=== PATIENT | female | born 1930 | race Caucasian/White ===

== ENCOUNTER 2017-03-12 20:12 | Inpatient (IN) | payer MEDICARE ==
--- NOTE | 2017-03-12 21:12 | RAD ---
PORTABLE CHEST ONE VIEW 03/12/17 at 8:53 p.m. HISTORY: Shortness of breath, sepsis. FINDINGS: Comparison made with exam of 08/20/13. The heart size is normal. There are patchy areas of consolidation in the right upper and left lower l kasi zones. No pneumothoraces or large effusions are seen. IMPRESSION: Pneumonia. POS: [facility]
[2017-03-12 21:40] LABS: Hemoglobin 9.9 g/dL (12.0-16.0); Mean Corpuscular Hemoglobin 31.2 pg (27.0-31.0); Mean Corpuscular Volume 94.3 fl (81.0-99.0); Mean Platelet Volume 7.5 fL (7.4-10.4); Platelet Count 485 thou/uL (130-400); RBC Distribution Width 13.9 % (11.5-14.5); Red Blood Cell (RBC) Count 3.18 mill/uL (4.20-5.40)
[2017-03-12 21:44] LABS: ALT (SGPT) 19 U/L (8-55); AST (SGOT) 15 U/L (5-34); Albumin 2.9 g/dL (3.4-4.8); Alkaline Phosphatase 218 U/L (40-150); Anion Gap 21 mmol/L (10-20); BUN (Urea Nitrogen) 19 mg/dL (9.8-20.1); Bilirubin, Total 2.5 mg/dL (0.2-1.2); Calc. Creatinine Clearance 0 mL/min (70-130); Calcium 8.8 mg/dL (7.8-10.44); Carbon Dioxide 18 mmol/L (23-31); Chloride 96 mmol/L (98-107); Estimated GFR-MDRD 42; Globulin 3.6 g/dL (2.4-3.5); Glucose 139 mg/dL (83-110); Lipase Less than 4 U/L (8-78); Magnesium 1.7 mg/dL (1.6-2.6); Protein, Total 6.5 g/dL (6.0-8.3); Sodium 132 mmol/L (136-145)
[2017-03-12 21:45] LABS: Band 33 % (5-11); Dohle Bodies SLIGHT; Lymphocytes 1 % (21-51); MDiff Complete? YES; Metamyelocyte 2 % (0-0); Monocytes 5 % (0-10); Neutrophil 59 % (42-75); PLT Morphology Comment Appears Increased; Reflex for Review?? YES; Toxic Granulation SLIGHT
[2017-03-12 21:46] LABS: Potassium 2.9 mmol/L (3.5-5.1)
[2017-03-12 21:52] LABS: CKMB 3.3 ng/mL (0-6.6); Troponin I Less than 0.010 ng/mL (< 0.028)
[2017-03-12] MEDS ORDERED: Piperacillin-Tazo-Dextrose,Iso 3.375 GM in Premix Bag 1 BAG IVPB SCH (22:45)
[2017-03-12] MEDS ORDERED: Oseltamivir 75 MG CAP PO SCH (22:45)
[2017-03-12] MEDS ORDERED: Albuterol Sulfate 2.5 mg/3 ml Neb ONE (23:05)
[2017-03-12 23:18] LABS: Actual Bicarbonate (HCO3a) 17.6 mEq/L (22-26); Base Excess (BEa) -4.4 mEq/L (0 (+/-) 2.5); CO2 Tension 23.1 mmHg (35.0-45.0); Hematocrit-ABG 33.6 % (36.0-47.0); O2 Tension (PaO2) 69.6 mmHg (80.0-100.0)
[2017-03-12 23:19] LABS: ALV-art Gradient 184.725 (0-20); Analyzer IN Cardio ER; Puncture Site LRA
[2017-03-12] MEDS ORDERED: Lorazepam 2 MG/ML VIAL ONE (23:23)
[2017-03-13] MEDS ORDERED: Mag-Al 1200 mg/1200 mg/30 ML UDCUP PO PRN (01:14)
[2017-03-13] MEDS ORDERED: Loratadine 10 MG TAB PO PRN (01:14)
[2017-03-13] MEDS ORDERED: Diabetic Tussin 200 MG/10 ML UDCUP PO PRN (01:14)
[2017-03-13] MEDS ORDERED: Benzonatate 100 MG CAP PO PRN (01:14)
[2017-03-13] MEDS ORDERED: Bisacodyl 5 MG TAB PO PRN (01:14)
[2017-03-13] MEDS ORDERED: hydrALAZINE 20 MG/ML VIAL SLOW IVP PRN (01:14)
[2017-03-13] MEDS ORDERED: Famotidine/PF 20 mg/2ml Vial SLOW IVP PRN (01:14)
[2017-03-13] MEDS ORDERED: Nitroglycerin 0.4 MG TAB (25 Tab Bottle) SL PRN (01:14)
[2017-03-13] MEDS ORDERED: Senokot 8.6 MG TAB PO PRN (01:14)
[2017-03-13] MEDS ORDERED: CCU Electrolyte Replacement 1 EACH FS SCH (01:14)
[2017-03-13] MEDS ORDERED: cloNIDine 0.1 MG TAB PO PRN (01:14)
[2017-03-13] MEDS ORDERED: Norepinephrine 8 MG in Sodium Chloride 0.9% 250 ML 242 ML IVPB PRN (01:14)
[2017-03-13] MEDS ORDERED: Ondansetron HCl/PF 4 MG/2 ML Vial IVP PRN (01:14)
[2017-03-13] MEDS ORDERED: Calcium Carbonate 500 MG ChewTAB PO PRN (01:14)
[2017-03-13] MEDS ORDERED: Sodium Chloride 0.9% 1,000 ML IV SCH (01:15)
[2017-03-13] MEDS ORDERED: Potassium Chloride 40 MEQ in Sodium Chloride 0.9% 250 ML 250 ML IVPB PRN (01:25)
[2017-03-13] MEDS ORDERED: Potassium Chloride 20 MEQ TAB PO PRN (01:25)
[2017-03-13] MEDS ORDERED: Magnesium 2 GM/NS 0.9% 100 ML 2 GM in Premix Bag 1 BAG IVPB PRN (01:25)
[2017-03-13] MEDS ORDERED: Potassium Phosphate 12 MMOL in Sodium Chloride 0.9% 250 ML 250 ML IV PRN (01:25)
[2017-03-13] MEDS ORDERED: Potassium Phosphate 9 MMOL in Sodium Chloride 0.9% 100 ML IVPB PRN (01:25)
[2017-03-13] MEDS ORDERED: Potassium Chloride 40 MEQ in Premix Bag 1 BAG IVPB PRN (01:25)
[2017-03-13] MEDS ORDERED: CCU ELECTROLYTE REPLACEMENT PROTOCOL FS PRN (01:25)
[2017-03-13] MEDS ORDERED: Potassium Phosphate 15 MMOL in Sodium Chloride 0.9% 250 ML 250 ML IV PRN (01:25)
[2017-03-13] MEDS ORDERED: Magnesium Oxide 400 MG TAB PO PRN ×2 (01:25)
[2017-03-13] MEDS ORDERED: VANCOMYCIN IVPB PRN (01:44)
[2017-03-13] MEDS ORDERED: Ketoconazole 2% Cream 15 gm Tube TOP PRN (03:39)
[2017-03-13 05:17] VITALS: BMI 24.1
[2017-03-13 05:21] LABS: ALT (SGPT) 19 U/L (8-55); AST (SGOT) 22 U/L (5-34); Albumin 2.8 g/dL (3.4-4.8); Alkaline Phosphatase 216 U/L (40-150); Anion Gap 21 mmol/L (10-20); BUN (Urea Nitrogen) 18 mg/dL (9.8-20.1); Bilirubin, Total 2.6 mg/dL (0.2-1.2); Calc. Creatinine Clearance 39 mL/min (70-130); Calcium 8.6 mg/dL (7.8-10.44); Carbon Dioxide 15 mmol/L (23-31); Chloride 99 mmol/L (98-107); Estimated GFR-MDRD 49; Globulin 3.7 g/dL (2.4-3.5); Glucose 156 mg/dL (83-110); Potassium 3.1 mmol/L (3.5-5.1); Protein, Total 6.5 g/dL (6.0-8.3); Sodium 132 mmol/L (136-145)
[2017-03-13 05:57] LABS: Band 52 % (5-11); Dohle Bodies SLIGHT; Hemoglobin 11.4 g/dL (12.0-16.0); Lymphocytes 4 % (21-51); MDiff Complete? YES; Mean Corpuscular HGB CONC 31.9 g/dL (32.0-36.0); Mean Corpuscular Hemoglobin 30.4 pg (27.0-31.0); Mean Corpuscular Volume 95.5 fl (81.0-99.0); Mean Platelet Volume 6.7 fL (7.4-10.4); Metamyelocyte 4 % (0-0); Monocytes 4 % (0-10); Myelocyte 1 % (0-0); Neutrophil 35 % (42-75); PLT Morphology Comment Appears Increased; Platelet Count 474 thou/uL (130-400); RBC Distribution Width 14.3 % (11.5-14.5); Red Blood Cell (RBC) Count 3.76 mill/uL (4.20-5.40); Toxic Granulation SLIGHT; White Blood Cell (WBC) Count 47.8 thou/uL (4.8-10.8)
[2017-03-13] MEDS: Piperacillin/Tazobactam 4.5 GM in Sodium Chloride 0.9% 100 ML IVPB SCH ×3 (06:00→17:31)
[2017-03-13] MEDS: Levothyroxine Sodium 112 MCG TAB PO SCH (06:00)
--- NOTE | 2017-03-13 06:11 | HP ---
DATE OF ADMISSION: 03/12/2017 CHIEF COMPLAINT: Shortness of breath, cough. HISTORY OF PRESENT ILLNESS: Ms. Siddiqui is a very pleasant 86-year-old female with history of inguin al hernia, hypertension, hypothyroidism, lung carcinoid tumor who presented to the [facility] with the above-mentioned complaints. History is mainly obtained by the record review. The p atient is able to provide some of the history, but not ideal because of excessive cough and because s he is getting easily winded. According to Ms. Siddiqui, she lives in an assisted living facility where everybody is sick. She star shayy to have some cough for the last 2 weeks, but then she shortly developed shortness of breath 2 day s ago. It has progressively been getting worse. She denies any fevers. She denies any other sympto ms. No chest pain, orthopnea, or PND. She has no nausea, vomiting, diarrhea, or abdominal pain. Sh e denies any dysuria, frequency, or urgency. Upon presentation to [facility], she was found to have hypoxia with oxygen saturation o f 91% on room air and tachycardia with a heart rate of 107. Her blood pressure was 116/57. Further examination revealed WBC elevated to 42.28 with 80% neutrophils and 9% bands. She was also found to have lactic acid elevated at 3.3 and BNP of 219. On examination, she was found to have respiratory d istress with crackles and wheezes. She was transferred to our facility with a presumptive diagnosis of respiratory distress due to sepsis and pneumonia. Upon presentation to [facility], she was 93% on 4 liters oxygen, treated because of se holley respiratory distress. She was started on BiPAP and is now being admitted to [facility] respirator for acute respiratory failure due to pneumonia as well as sepsis. The patient otherwise has DNR/DNI ord er in the chart and I also personally confirmed this at this time. She continues to be DNR/DNI, but she would allow use of pressors and CPAP and BiPAP if necessary. PAST MEDICAL HISTORY: 1. Hypertension. 2. Hypothyroidism. 3. History of inguinal hernia. 4. Osteoporosis. 5. Macular degeneration. 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 7. Sciatica. PAST SURGICAL HISTORY: Appendectomy. PSYCHIATRIC HISTORY: Anxiety. SOCIAL HISTORY: She lives in [facility] assisted living facility. Former smoker, but quit smoking mo re than 10 years ago. No history of alcohol or drug abuse. FAMILY HISTORY: No significant family history of coronary artery disease or stroke. ALLERGIES: FLUCONAZOLE and SULFACETAMIDE. CURRENT MEDICATIONS: Clonidine 0.2 mg daily, losartan/hydrochlorothiazide 100 mg/ 25 mg 1 tablet nicolette ly, metoprolol tartrate 25 mg daily, Norvasc 5 mg daily, Lasix 50 mg daily, levothyroxine 112 mcg da parvin, nortriptyline 10 mg 2 tablets at bedtime, omeprazole 20 mg daily, potassium chloride 20 mEq florin y, Zantac 150 mg daily, temazepam 7.5 mg at bedtime. REVIEW OF SYSTEMS: The following complete review of systems was negative, except for those mentioned in the history and physical: Constitutional: Weight loss or gain, ability to conduct usual activities. Skin: Rash, itching. Eyes: Double vision, pain. ENT/Mouth: Nose bleeding, neck stiffness, pain, tenderness. Cardiovascular: Palpitations, dyspnea on exertion, orthopnea. Respiratory: Shortness of breath, wheezing, cough, hemoptysis, fever, or night sweats. Gastrointestinal: Poor appetite, abdominal pain, heartburn, nausea, vomiting, constipation, or diarr hea. Genitourinary: Urgency, frequency, dysuria, nocturia. Musculoskeletal: Pain, swelling. Neurologic/Psychiatric: Anxiety, depression. Allergy/Immunologic: Skin rash, bleeding tendency. The patient reports that her breathing is a trina le bit better. LABORATORY DATA: Labs done at [facility] include WBCs 46,000 with 33% bands and 59% n eutrophils, hemoglobin 9.9, platelet count of 485. D-dimer is 1.36. ABG shows pH of 7.50, pCO2 of 2 3, pO2 of 69. Serum chemistry show sodium of 132, potassium 2.9, chloride 96, bicarbonate 18, anion gap of 21, BUN 19, creatinine 1.20, estimated GFR of 42. Lactic acid 5.4 with repeat lactic acid of 6.0. Total bilirubin 2.5. BNP of 218. Cardiac enzymes unremarkable. Lipase is normal. Chest x-ray by review shows bilateral infiltrates consistent with pneumonia. EKG by my review shows normal sinus rhythm with sinus tachycardia at 118 beats per minute. PHYSICAL EXAMINATION: VITAL SIGNS: Most recent vital signs include pulse of 119, respirations 24, saturating 94% on 4 lite rs oxygen, blood pressure 106/53. Please note that the patient has taken off the BiPAP and could not tolerate it. GENERAL: She is awake, alert, oriented x3. She has significant scoliosis and is bent over when lyin g in bed, otherwise mild respiratory distress, especially with conversation. She is coughing HEENT: Mucous membranes slightly dry. No oropharyngeal exudate or erythema. Head is normocephalic, atraumatic. Pupils are equal, reactive to light and accommodation. Extraocular movements intact. NECK: Supple without any lymphadenopathy, JVD, or bruit. CHEST: Shows bibasilar crackles with very few scattered wheezes. Coarse breath sounds heard bilater ally. CARDIOVASCULAR: She is tachycardic with regular rhythm. No significant murmur appreciated. ABDOMEN: Soft, nontender, nondistended. Right inguinal hernia palpable. EXTREMITIES: Free of any cyanosis, clubbing, or edema. NEUROLOGIC: Nonfocal. SKIN: Free of any rashes or bruises. Feels warm and dry to touch. PSYCHIATRIC: Mild anxiety noticed. CODE STATUS: DO NOT RESUSCITATE AND INTUBATE. I personally discussed this with the patient and conf irmed it. IMPRESSION AND PLAN: 1. Acute respiratory failure. This is likely secondary to ongoing pneumonia. The patient does have elevated D-dimer, though the likelihood of pulmonary embolism is low, given the fact that she is pedro patrick septic. We will, however, go ahead and obtain a nuclear medicine ventilation perfusion scan. I t likely will be of limited value given her extensive scoliosis as well as pneumonia. If her renal f unction permits, a CT angio would be the ideal test, but her GFR is only 42 at this time. We will av oid any nephrotoxic medications or dyes. Patient has BiPAP orders, but otherwise she is a DNR/DNI. She does not want to keep the BiPAP on and will be continued on nasal cannula for now. DuoNebs will be ordered, scheduled as well as p.r.n. along with other symptomatic and supportive care. We will co nsult Pulmonary medicine for further evaluation and she would be admitted to [facility] for now. The patie nt does have history of congestive heart failure, but no baseline. Echocardiogram is available on he r. We will go ahead and check echocardiogram to rule out valvular abnormalities and systolic versus diastolic failure. We will be cautious with IV fluid hydration. 2. Sepsis secondary to pneumonia. Broad-spectrum IV antibiotics will be used, namely vancomycin, le vofloxacin as well as Zosyn. The patient has received Tamiflu empirically in the emergency room and we will continue that for now as most of her residents at the [facility] were sick. Gentle IV f luid hydration will be continued, but we will be cautious for fluid overload given her history of con gestive heart failure. 3. Hypokalemia. We will replace and recheck. Her magnesium level is within normal limits. Anion g ap metabolic acidosis. This is once again secondary to severe sepsis and lactic acidosis. We will c ontinue IV fluids and recheck in the morning. 4. Pneumonia. She will be treated as healthcare-associated pneumonia, because she resides in the [facility] with broad-spectrum empiric intravenous antibiotics and supportive care. 5. Sinus tachycardia. The patient will be restarted on her beta violet once blood pressure improve s. Currently, her blood pressure is stable and 106/53 as well as 96/47 range. She has been adequate ly fluid resuscitated in our emergency room with multiple liters of IV fluids. 6. Lactic acidosis secondary to sepsis. 7. Leukocytosis secondary to sepsis. 8. History of hypertension. We will hold her antihypertensives and restart as blood pressure permit s. 9. History of congestive heart failure, obtain 2D echocardiogram and hold her Lasix for now given lo w-marginal blood pressures. 10. Deep venous thrombosis and gastrointestinal prophylaxis. 11. Hypothyroidism. Restart her levothyroxine. DISPOSITION: Ms. Siddiqui is critically ill with severe sepsis as well as acute respiratory failure. She will be admitted to [facility]. Estimated length of stay is at least 2-3 midnight. Total time spent in the care of this patient is 38 minutes.
[2017-03-13 06:41] LABS: Bilirubin Negative (Negative); Blood, Urine Negative (Negative); Clarity CLEAR (Clear); Glucose, Urine (Dipstick) Negative (Negative); Leukocyte Small (Negative); Nitrite Negative (Negative); Protein, Urine (Dipstick) Negative (Neg-Trace); Specific Gravity, Urine 1.016 (1.002-1.036); pH, Urine 5.5 (5.0-9.0)
[2017-03-13 06:44] LABS: Bacteria/HPF 2+ HPF (None Seen); Hyaline Casts/LPF 4-6 HYALINE CAST LPF (0-3 Hyaline); RBC/HPF 0-3 HPF (0-3); Squamous Epithelial 0-3 HPF (0-3); WBC/HPF 0-3 HPF (0-3)
[2017-03-13] MEDS: Oseltamivir 75 MG CAP PO SCH ×2 (08:19→20:11)
[2017-03-13] MEDS: Megestrol Acetate 40 MG TAB PO SCH ×2 (08:19→20:11)
[2017-03-13] MEDS: guaiFENesin ER 600 MG TAB PO SCH ×2 (08:20→20:11)
[2017-03-13] MEDS ORDERED: Vancomycin HCl 1 GM in Sodium Chloride 0.9% 250 ML 250 ML IVPB SCH (09:00)
[2017-03-13 10:11] LABS: Magnesium 1.9 mg/dL (1.6-2.6); Potassium 3.2 mmol/L (3.5-5.1)
--- NOTE | 2017-03-13 10:11 | PDOC.PN ---
- Subjective Encounter Start Date: 03/13/17 Encounter Start Time: 10:09 Ms. Siddiqui was seen in follow-up of acute respiratory distress due to pneumonia. She says she is breathing a little better. She still feels short of breath. - Objective Resuscitation Status: Resuscitation Status DNR:Do Not Resuscitate MAR Reviewed: Yes Vital Signs & Weight: Vital Signs (12 hours) Temp Pulse Resp BP Pulse Ox 03/13/17 08:39 94 L 03/13/17 08:36 116 H 36 H 94 L 03/13/17 08:00 98.9 F 118 H 20 117/63 94 L 03/13/17 07:00 98.9 F 117 H 18 96/70 94 L 03/13/17 06:02 124 H 24 H 146/76 H 93 L 03/13/17 05:20 120 H 24 H 127/68 93 L 03/13/17 04:01 98.0 F 121 H 24 H 102/56 L 92 L 03/13/17 03:05 119 H 24 H 106/53 L 94 L 03/13/17 02:26 120 H 28 H 93 L 03/13/17 02:22 118 H 24 H 96/47 L 96 03/13/17 01:34 122 H 24 H 119/56 L 94 L 03/13/17 00:39 97.8 F 124 H 24 H 150/76 H 94 L Weight Weight 144 lb 8 oz I&O: 03/12/17 03/13/17 03/14/17 06:59 06:59 06:59 Intake Total 1080 Output Total 750 60 Balance 330 -60 Result Diagrams: 03/13/17 03:57 03/13/17 03:57 Phys Exam - Physical Examination HEENT: PERRLA Respiratory: wheezing present + rales bilaterally, no rhonchi Cardiovascular: RRR, no significant murmur, no rub Gastrointestinal: soft, non-tender, positive bowel sounds Musculoskeletal: no edema Dx/Plan (1) Acute and chronic respiratory failure Code(s): J96.20 - ACUTE AND CHR RESP FAILURE, UNSP W HYPOXIA OR HYPERCAPNIA Status: Acute (2) Pneumonia Code(s): J18.9 - PNEUMONIA, UNSPECIFIED ORGANISM Status: Acute (3) Sepsis Code(s): A41.9 - SEPSIS, UNSPECIFIED ORGANISM Status: Acute (4) Hypertension Code(s): I10 - ESSENTIAL (PRIMARY) HYPERTENSION Status: Acute (5) Hypothyroidism Code(s): E03.9 - HYPOTHYROIDISM, UNSPECIFIED Status: Acute - Plan * Acute respiratory failure due to Pneumonia with sepsis- Continue Levaquin and Zosyn * Aggressive Pulmonary Toilet * Duonebs and supplemental oxygen * HTN- blood pressure is stable * Awaiting Pulmonary evaluation * Patient with severe Kyphosis, and advanced age, and Leukocytosis- her condition is guarded.
[2017-03-13] MEDS: traMADol HCl 50 MG TAB PO PRN ×2 (11:51→20:12)
--- NOTE | 2017-03-13 17:39 | ULT ---
BILATERAL LOWER EXTREMITY VENOUS DOPPLER ULTRASOUND: Date: 03/13/17 HISTORY: Shortness of breath. Pain in the left lower extremity. TECHNIQUE: Johnson scale ultrasound with color flow and spectral Doppler imaging of the deep venous systems of the lower extremities was performed bilaterally. FINDINGS: There is good flow, compression, and augmentation noted in the common femoral, femoral, deep femoral, popliteal, posterior tibial, and greater saphenous veins on either side. IMPRESSION: No evidence of deep venous thrombosis in either lower extremity. POS: [facility]
[2017-03-13] MEDS: Vancomycin HCl 750 MG in Sodium Chloride 0.9% 250 ML 250 ML IVPB SCH (20:13)
--- NOTE | 2017-03-13 20:35 | CON ---
DATE OF CONSULTATION: 03/13/2017 CONSULTING PHYSICIAN: Irene Harvey MD REASON FOR CONSULTATION: Shortness of breath. HISTORY OF PRESENT ILLNESS: This is an 86-year-old female, who was hospitalized yesterday with appar ent increasing shortness of breath and cough. Apparently, she has some shortness of breath at [facility]. She has difficulty swallowing and has to have her assist in feeding her. She lives in a assisted living facility with her . She was found to be more hypoxic yesterday and was tach ycardic. She has been hospitalized with an empiric diagnosis of acute respiratory failure related to sepsis and pneumonia. PAST MEDICAL HISTORY: 1. Severe osteoporosis. 2. Severe kyphosis. 3. Hypertension. 4. Hypothyroidism. 5. Inguinal hernia. 6. Macular degeneration. 7. Carcinoid tumor of the right lung. 8. Sciatica. PAST SURGICAL HISTORY: Appendectomy. SOCIAL HISTORY: Former smoker, quit more than 10 years. Does not consume alcohol. Lives in [facility] in assisted living facility with her . FAMILY MEDICAL HISTORY: Unremarkable. ALLERGIES: FLUCONAZOLE and SULFACETAMIDE. MEDICATIONS: Clonidine, losartan/hydrochlorothiazide, metoprolol, Norvasc, Lasix, levothyroxine, nor triptyline, omeprazole, potassium, Zantac, temazepam. REVIEW OF SYSTEMS: Remarkable for cough, difficulty swallowing. Otherwise, is negative. PHYSICAL EXAMINATION: VITAL SIGNS: Temperature 97.6, pulse 65, respiratory rate 20, O2 sat 97%, blood pressure 123/67. GENERAL: She is severely kyphotic. She cannot raise her neck above the level of her sternal notch. HEENT: Otherwise, unremarkable. NECK: No JVD. LUNGS: Fairly clear without wheezing, but tachypneic at baseline. CARDIOVASCULAR: S1, S2, slightly tachycardic. ABDOMEN: Soft, nontender. EXTREMITIES: No edema. LABORATORY AND X-RAY FINDINGS: White blood cell count is 47.8, hematocrit 35.9, platelet count 474. INR 1.0, PTT 28. Chemistry: Sodium 132, potassium 3.7, chloride 96, CO2 19, BUN 15, creatinine 1.0 . Lactate of 6.0. Blood gas pH of 7.50, pCO2 of 23, PO2 of 69. Chest x-ray demonstrates a right up per lobe and left lower lobe infiltrate. Overall, she has got severe chronic changes bilaterally. ASSESSMENT: 1. Pneumonia -- probably chronic aspiration pneumonia. 2. Severe kyphoscoliosis. 3. History of hypertension. 4. Possible flu with pending flu studies. RECOMMENDATIONS: 1. Continue the antibiotic system or neither speech evaluation. 2. Would discontinue the VQ scan as she is not able to lie down and do the test. 3. Check lower extremity Dopplers.
[2017-03-14] MEDS: Piperacillin/Tazobactam 4.5 GM in Sodium Chloride 0.9% 100 ML IVPB SCH ×4 (00:34→18:29)
[2017-03-14] MEDS: traMADol HCl 50 MG TAB PO PRN (03:22)
[2017-03-14] MEDS: Levothyroxine Sodium 112 MCG TAB PO SCH (05:38)
[2017-03-14 06:16] LABS: Hemoglobin 11.4 g/dL (12.0-16.0); Mean Corpuscular HGB CONC 31.4 g/dL (32.0-36.0); Mean Corpuscular Hemoglobin 29.6 pg (27.0-31.0); Mean Corpuscular Volume 94.5 fl (81.0-99.0); Mean Platelet Volume 7.1 fL (7.4-10.4); Platelet Count 407 thou/uL (130-400); RBC Distribution Width 14.4 % (11.5-14.5); Red Blood Cell (RBC) Count 3.86 mill/uL (4.20-5.40); White Blood Cell (WBC) Count 57.4 thou/uL (4.8-10.8)
[2017-03-14 06:18] LABS: Anion Gap 14 mmol/L (10-20); BUN (Urea Nitrogen) 19 mg/dL (9.8-20.1); Calc. Creatinine Clearance 48 mL/min (70-130); Calcium 9.3 mg/dL (7.8-10.44); Carbon Dioxide 22 mmol/L (23-31); Chloride 104 mmol/L (98-107); Estimated GFR-MDRD 63; Glucose 164 mg/dL (83-110); Potassium 3.2 mmol/L (3.5-5.1); Sodium 137 mmol/L (136-145)
[2017-03-14 06:39] LABS: Band 43 % (5-11); Lymphocytes 3 % (21-51); MDiff Complete? YES; Monocytes 1 % (0-10); Neutrophil 53 % (42-75); PLT Morphology Comment Appears Increased
[2017-03-14] MEDS: Megestrol Acetate 40 MG TAB PO SCH ×2 (08:39→21:31)
[2017-03-14] MEDS: guaiFENesin ER 600 MG TAB PO SCH ×2 (08:39→21:31)
[2017-03-14] MEDS: Oseltamivir 75 MG CAP PO SCH (08:39)
--- NOTE | 2017-03-14 10:09 | PRG ---
DATE OF SERVICE: 03/14/2017 SUBJECTIVE: She is continuing to have difficulty with aspiration while eating. She has made a decis ion to forego any type of feeding tube placement understanding the risks involved. PHYSICAL EXAMINATION: VITAL SIGNS: Today, her temperature is 97.3, pulse 115, respirations 18, O2 sat 93%, blood pressure 127/67. HEENT: Remarkable for the kyphotic neck posture. LUNGS: Coarse breath sounds. CARDIAC: S1 and S2 regular. ABDOMEN: Soft. EXTREMITIES: No edema. LABORATORY DATA: White blood cell count 57.4, hematocrit 36.5, platelet count 407. Sodium 137, pota ssium 3.2, chloride 104, CO2 22, BUN 19, creatinine 0.8, glucose 164. ASSESSMENT: 1. Bilateral pneumonia, likely aspiration related. 2. Advanced age. RECOMMENDATIONS: I would continue antibiotics, but I am very concerned that this condition is not go ing to improve because of the patient's dysfunctional swallowing. She has made it clear that she el s not want any aggressive interventions. Based on this, I would favor getting the palliative care te am involved. The patient is DNR. She is not benefiting for intermediate care. Therefore, she can b e transferred out to the medical floor. I discussed with her on the phone. Her prognosis is very poor.
--- NOTE | 2017-03-14 11:00 | PDOC.PN ---
- Subjective Encounter Start Date: 03/14/17 Encounter Start Time: 07:30 Subjective: awake, oriented well -: no sob, still coughing - Objective Resuscitation Status: Resuscitation Status DNR:Do Not Resuscitate MAR Reviewed: Yes Vital Signs & Weight: Vital Signs (12 hours) Temp Pulse Resp BP Pulse Ox 03/14/17 08:00 97.3 F L 115 H 18 93 L 03/14/17 07:00 97.3 F L 115 H 18 127/67 93 L 03/14/17 06:52 90 L 03/14/17 06:51 116 H 28 H 03/14/17 04:32 96 03/14/17 04:07 97.6 F 114 H 24 H 144/61 H 92 L 03/14/17 00:45 115 H 26 H 93 L 03/14/17 00:39 98.4 F 117 H 20 130/54 L 94 L Weight Weight 147 lb I&O: 03/13/17 03/14/17 03/15/17 06:59 06:59 06:59 Intake Total 1080 850 Output Total 750 1410 Balance 330 -560 Result Diagrams: 03/14/17 05:35 03/14/17 05:35 Phys Exam - Physical Examination HEENT: PERRLA, moist MMs Neck: no JVD, supple Respiratory: no wheezing, no rales rhonchi++ Cardiovascular: RRR, no significant murmur Gastrointestinal: soft, non-tender, positive bowel sounds Musculoskeletal: no edema, pulses present Neurological: non-focal, moves all 4 limbs Psychiatric: A&O x 3 Dx/Plan (1) Pneumonia Code(s): J18.9 - PNEUMONIA, UNSPECIFIED ORGANISM Status: Acute Qualifiers: Pneumonia type: aspiration pneumonia Laterality: bilateral (2) FTT (failure to thrive) in adult Status: Chronic (3) Hypertension Code(s): I10 - ESSENTIAL (PRIMARY) HYPERTENSION Status: Chronic Qualifiers: Hypertension type: essential hypertension Qualified Code(s): I10 - Essential (primary) hypertension (4) Hypothyroidism Code(s): E03.9 - HYPOTHYROIDISM, UNSPECIFIED Status: Chronic Qualifiers: Hypothyroidism type: unspecified Qualified Code(s): E03.9 - Hypothyroidism , unspecified (5) Kyphoscoliosis Code(s): M41.9 - SCOLIOSIS, UNSPECIFIED Status: Chronic (6) Moderate protein malnutrition Code(s): E44.0 - MODERATE PROTEIN-CALORIE MALNUTRITION Status: Chronic - Plan is on vanc and zosyn -: may dc tamiflu -: nebs -: wbc is still very high at 57k with 43% bands -: has likely chronic aspiration with severe kyphoscoliosis * . agree with palliative care/hospice with pleasure feeding at [facility] living. Pt is DNR and does not want feeding tube. May tx to medical floor. Review of Systems - Medications/Allergies Allergies/Adverse Reactions: Allergies Allergy/AdvReac Type Severity Reaction Status Date / Time fluconazole [From Diflucan] Allergy Verified 08/19/13 12:13 Sulfa (Sulfonamide Allergy Verified 08/19/13 12:13 Antibiotics) Medications: Current Medications Al Hydroxide/Mg Hydroxide (Maalox) 15 ml PO Q4H PRN PRN Reason: Heartburn or Indigestion Albuterol/Ipratropium (Duoneb) 3 ml NEB Q6H PRN PRN Reason: SOB &/or Wheezing Albuterol/Ipratropium (Duoneb) 3 ml NEB [id number] [facility] Last Admin: 03/14/17 06:51 Dose: 3 ml Benzonatate (Tessalon) 100 mg PO Q4H PRN PRN Reason: Cough Last Admin: 03/13/17 01:52 Dose: 100 mg Bisacodyl (Dulcolax) 10 mg PO DAILYPRN PRN PRN Reason: Constipation Calcium Carbonate (Tums) 1,000 mg PO Q4H PRN PRN Reason: Heartburn or Indigestion Clonidine (Catapres) 0.1 mg PO Q4H PRN PRN Reason: Systolic BP > 180 Famotidine (Pepcid) 20 mg SLOW IVP Q24H PRN PRN Reason: Heartburn or Indigestion Guaifenesin (Mucinex) 1,200 mg PO Q12HR [facility] Last Admin: 03/14/17 08:39 Dose: 1,200 mg Guaifenesin (Robitussin Sf) 200 mg PO Q4H PRN PRN Reason: Cough Last Admin: 03/13/17 03:41 Dose: 200 mg Hydralazine HCl (Apresoline) 10 mg SLOW IVP Q4H PRN PRN Reason: Systolic BP > 180 Piperacillin Sod/Tazobactam (Sod 4.5 gm/ Sodium Chloride) 100 mls @ 200 mls/hr IVPB Q6HR [facility] Last Admin: 03/14/17 05:38 Dose: 100 mls Potassium Chloride 40 meq/ (Sodium Chloride) 270 mls @ 135 mls/hr IVPB ASDIR PRN PRN Reason: FOR SERUM K+ 2.5 - 3.5 Last Admin: 03/13/17 03:44 Dose: 270 mls Potassium Chloride 40 meq/ (Device) 100 mls @ 50 mls/hr IVPB ASDIR PRN PRN Reason: FOR SERUM K+ 2.5 - 3.5 Magnesium Sulfate 1 gm/ Sodium (Chloride) 102 mls @ 102 mls/hr IV PRN PRN PRN Reason: MAG LEVEL 1.4 - 2.0 Last Admin: 03/13/17 02:57 Dose: 102 mls Magnesium Sulfate 2 gm/ Device 100 mls @ 100 mls/hr IVPB ASDIR PRN PRN Reason: MAGNESIUM < 1.4 Potassium Phosphate 9 mmol/ (Sodium Chloride) 103 mls @ 25.75 mls/hr IVPB ASDIR PRN PRN Reason: Phosphate 1.0-1.8 Potassium Phosphate 12 mmol/ (Sodium Chloride) 254 mls @ 63.5 mls/hr IV ASDIR PRN PRN Reason: Serum phosphate 0.5-0.9 Potassium Phosphate 15 mmol/ (Sodium Chloride) 255 mls @ 63.75 mls/hr IV ASDIR PRN PRN Reason: Serum Phos < 0.5 Vancomycin HCl 750 mg/ Sodium (Chloride) 250 mls @ 250 mls/hr IVPB 2100 TONYA Last Admin: 03/13/17 20:13 Dose: 250 mls Ketoconazole (Nizoral 2% Cream) 0 gm TOP PRN PRN PRN Reason: Itching Levothyroxine Sodium (Synthroid) 112 mcg PO 0600 [facility] Last Admin: 03/14/17 05:38 Dose: 112 mcg Loratadine (Claritin) 10 mg PO DAILYPRN PRN PRN Reason: Sinus Symptoms Magnesium Oxide (Magnesium Oxide) 400 mg PO BIDPRN PRN PRN Reason: FOR SERUM MAG 1.4 - 2.0 Last Admin: 03/13/17 20:12 Dose: 400 mg Magnesium Oxide (Magnesium Oxide) 800 mg PO PRN PRN PRN Reason: FOR SERUM MAG < 1.4 Megestrol Acetate (Megace) 40 mg PO BID [facility] Last Admin: 03/14/17 08:39 Dose: 40 mg Miscellaneous Medication (Phos-Nak) 1 pkt PO TIDPRN PRN PRN Reason: FOR PHOS LEVEL 1.0 - 1.8 Miscellaneous Medication (Phos-Nak) 2 pkt PO TIDPRN PRN PRN Reason: FOR PHOS LEVEL 0.5 - 1.0 Miscellaneous Medication (Pharmacy To Dose) 1 each IVPB PRN PRN PRN Reason: SEPSIS Nitroglycerin (Nitrostat) 0.4 mg SL Q5MIN PRN PRN Reason: Chest Pain Ccu Electrolyte (Replacement Protocol) 0 each FS PRN PRN PRN Reason: FOR ELECTROLYTE REPLACEMENT Ondansetron HCl (Zofran) 4 mg IVP Q6H PRN PRN Reason: Nausea/Vomiting Oseltamivir Phosphate (Tamiflu) 75 mg PO BID [facility] Stop: 03/17/17 21:01 Last Admin: 03/14/17 08:39 Dose: 75 mg Pantoprazole Sodium (Protonix) 40 mg PO DAILY [facility] Last Admin: 03/14/17 08:39 Dose: 40 mg Potassium Chloride (K-Dur) 40 meq PO ASDIR PRN PRN Reason: FOR SERUM K+ 2.5 - 3.5 Last Admin: 03/13/17 20:12 Dose: 40 meq Potassium Chloride (Klor-Con) 40 meq PER TUBE ASDIR PRN PRN Reason: FOR SERUM K+ 2.5-3.5 Senna (Senokot) 2 tab PO HSPRN PRN PRN Reason: Constipation Sodium Chloride (Flush - Normal Saline) 10 ml IVF PRN PRN PRN Reason: Saline Flush Tramadol HCl (Ultram) 50 mg PO Q4H PRN PRN Reason: Moderate Pain (4-6) Last Admin: 03/14/17 03:22 Dose: 50 mg
--- NOTE | 2017-03-14 13:31 | PQF ---
DATE: 03-14-17 ATTN: DR. GREG DOTSON Please exercise your independent, professional judgment in responding to the clarification form. Clinical indicators are provided on the bottom of this form for your review Please check appropriate box(s): HEART FAILURE: A.TYPE: [ ] Systolic / HFrEF [ ] Diastolic / HFpEF [ ] Combined Systolic / Diastolic B.ACUITY [ ] Acute[ ] Acute on Chronic [ ] Chronic C.WITH (if appropriate) [ ] Hypertensive Heart Disease [ x ] Other diagnosis ___does not have heart failure [ ] Unable to determine In addition, please specify: Present on Admission (POA): [ ] Yes [ ] No [ ] Unable to determine For continuity of documentation, please document condition throughout progress notes and discharge summary. Thank You. CLINICAL INDICATORS - SIGNS / SYMPTOMS / LABS ECHO 03-12-17: EF 55-60% BNP 03-12-17 : 218.9 H&P: PATIENT DOES HAVE HISTORY OF CHF, BUT NO BASELINE. SINUS TACHYCARDIA RISKS: H&P: HX OF CHF, HTN TREATMENTS: CARDIAC MONITORING/TELEMETRY RT REPORT: O2 4-4.5L PER NC (This form is maintained as a part of the permanent medical record) 2014 [employer]. All Rights Reserved [email or web address] Office: [phone] [place]
[2017-03-14 20:38] LABS: Vancomycin, Trough 6.4 ug/mL
[2017-03-14] MEDS: Vancomycin HCl 750 MG in Sodium Chloride 0.9% 250 ML 250 ML IVPB SCH (21:32)
[2017-03-15] MEDS: Piperacillin/Tazobactam 4.5 GM in Sodium Chloride 0.9% 100 ML IVPB SCH ×4 (00:04→18:17)
[2017-03-15] MEDS ORDERED: Furosemide 20 MG/2 ML VIAL SLOW IVP SCH (03:00)
[2017-03-15] MEDS: Levothyroxine Sodium 112 MCG TAB PO SCH (08:01)
[2017-03-15] MEDS: Vancomycin HCl 750 MG in Sodium Chloride 0.9% 250 ML 250 ML IVPB SCH ×2 (08:41→20:22)
[2017-03-15] MEDS: guaiFENesin ER 600 MG TAB PO SCH ×2 (08:42→20:27)
[2017-03-15] MEDS: Megestrol Acetate 40 MG TAB PO SCH ×2 (08:43→20:27)
--- NOTE | 2017-03-15 09:27 | PRG ---
DATE OF SERVICE: 03/15/2017 The patient continues to struggle with her breathing. She just wants comfort measures. PHYSICAL EXAMINATION: VITAL SIGNS: Temperature 97.6, pulse 60, respiration 24, O2 sat 92%, blood pressure 164/74. HEENT: Remarkable for severe kyphotic neck. LUNGS: Coarse breath sounds. CARDIAC: S1 and S2 regular. ABDOMEN: Soft. EXTREMITIES: No edema. LABORATORY DATA: No labs were obtained today. ASSESSMENT: 1. Chronic respiratory failure secondary to aspiration pneumonia. 2. Advanced age. 3. Severe kyphosis. PLAN: I do not think Ms. Siddiqui has very long to live. Palliative Care has been consulted to sarwat darnell in her care. She is currently on IV antibiotics. Cultures showed no growth to date, which I would expect given that this is probably chronic aspiration. I relayed to the yesterday that the patient's prognosis is quite poor.
--- NOTE | 2017-03-15 12:32 | PDOC.PN ---
- Subjective Encounter Start Date: 03/15/17 Encounter Start Time: 10:00 Subjective: is on ventimask, has sob - Objective Resuscitation Status: Resuscitation Status DNR:Do Not Resuscitate MAR Reviewed: Yes Vital Signs & Weight: Vital Signs (12 hours) Temp Pulse Resp BP Pulse Ox 03/15/17 12:00 97.5 F L 114 H 22 H 150/75 H 86 L 03/15/17 08:00 97.6 F 116 H 24 H 164/74 H 92 L 03/15/17 07:39 108 H 28 H 90 L 03/15/17 04:00 89 L 03/15/17 03:45 98.1 F 116 H 24 H 148/75 H 89 L 03/15/17 00:32 98.4 F 121 H 24 H 164/72 H 90 L Weight Weight 143 lb 5 oz I&O: 03/14/17 03/15/17 03/16/17 06:59 06:59 06:59 Intake Total 850 710 Output Total 9421 853 9401 Balance -560 -650 -606 Result Diagrams: 03/14/17 05:35 03/14/17 05:35 Phys Exam - Physical Examination HEENT: PERRLA, moist MMs Neck: no JVD, supple Respiratory: no wheezing, no rales rhonchi++ Cardiovascular: RRR, no significant murmur Gastrointestinal: soft, non-tender, positive bowel sounds Musculoskeletal: no edema, pulses present Neurological: non-focal, moves all 4 limbs Psychiatric: A&O x 3 Dx/Plan (1) Pneumonia Code(s): J18.9 - PNEUMONIA, UNSPECIFIED ORGANISM Status: Acute Qualifiers: Pneumonia type: aspiration pneumonia Laterality: bilateral (2) FTT (failure to thrive) in adult Status: Chronic (3) Hypertension Code(s): I10 - ESSENTIAL (PRIMARY) HYPERTENSION Status: Chronic Qualifiers: Hypertension type: essential hypertension Qualified Code(s): I10 - Essential (primary) hypertension (4) Hypothyroidism Code(s): E03.9 - HYPOTHYROIDISM, UNSPECIFIED Status: Chronic Qualifiers: Hypothyroidism type: unspecified Qualified Code(s): E03.9 - Hypothyroidism , unspecified (5) Kyphoscoliosis Code(s): M41.9 - SCOLIOSIS, UNSPECIFIED Status: Chronic (6) Moderate protein malnutrition Code(s): E44.0 - MODERATE PROTEIN-CALORIE MALNUTRITION Status: Chronic - Plan on vanc and zosyn -: incentive spirometry -: oob to chair as tolerated -: palliative care -: nebs, severe kyphosis, chronic aspiration? * . Review of Systems - Medications/Allergies Allergies/Adverse Reactions: Allergies Allergy/AdvReac Type Severity Reaction Status Date / Time fluconazole [From Diflucan] Allergy Verified 08/19/13 12:13 Sulfa (Sulfonamide Allergy Verified 08/19/13 12:13 Antibiotics) Medications: Current Medications Al Hydroxide/Mg Hydroxide (Maalox) 15 ml PO Q4H PRN PRN Reason: Heartburn or Indigestion Albuterol/Ipratropium (Duoneb) 3 ml NEB Q6H PRN PRN Reason: SOB &/or Wheezing Albuterol/Ipratropium (Duoneb) 3 ml NEB [id number] [facility] Last Admin: 03/15/17 07:39 Dose: 3 ml Benzonatate (Tessalon) 100 mg PO Q4H PRN PRN Reason: Cough Last Admin: 03/13/17 01:52 Dose: 100 mg Bisacodyl (Dulcolax) 10 mg PO DAILYPRN PRN PRN Reason: Constipation Calcium Carbonate (Tums) 1,000 mg PO Q4H PRN PRN Reason: Heartburn or Indigestion Clonidine (Catapres) 0.1 mg PO Q4H PRN PRN Reason: Systolic BP > 180 Guaifenesin (Mucinex) 1,200 mg PO Q12HR [facility] Last Admin: 03/15/17 08:42 Dose: 1,200 mg Guaifenesin (Robitussin Sf) 200 mg PO Q4H PRN PRN Reason: Cough Last Admin: 03/13/17 03:41 Dose: 200 mg Hydralazine HCl (Apresoline) 10 mg SLOW IVP Q4H PRN PRN Reason: Systolic BP > 180 Piperacillin Sod/Tazobactam (Sod 4.5 gm/ Sodium Chloride) 100 mls @ 200 mls/hr IVPB Q6HR [facility] Last Admin: 03/15/17 11:02 Dose: 100 mls Magnesium Sulfate 1 gm/ Sodium (Chloride) 102 mls @ 102 mls/hr IV PRN PRN PRN Reason: MAG LEVEL 1.4 - 2.0 Last Admin: 03/13/17 02:57 Dose: 102 mls Magnesium Sulfate 2 gm/ Device 100 mls @ 100 mls/hr IVPB ASDIR PRN PRN Reason: MAGNESIUM < 1.4 Vancomycin HCl 750 mg/ Sodium (Chloride) 250 mls @ 250 mls/hr IVPB Q12HR [facility] Last Admin: 03/15/17 08:41 Dose: 250 mls Ketoconazole (Nizoral 2% Cream) 0 gm TOP PRN PRN PRN Reason: Itching Levothyroxine Sodium (Synthroid) 112 mcg PO 0600 [facility] Last Admin: 03/15/17 08:01 Dose: Not Given Loratadine (Claritin) 10 mg PO DAILYPRN PRN PRN Reason: Sinus Symptoms Magnesium Oxide (Magnesium Oxide) 400 mg PO BIDPRN PRN PRN Reason: FOR SERUM MAG 1.4 - 2.0 Last Admin: 03/13/17 20:12 Dose: 400 mg Magnesium Oxide (Magnesium Oxide) 800 mg PO PRN PRN PRN Reason: FOR SERUM MAG < 1.4 Megestrol Acetate (Megace) 40 mg PO BID [facility] Last Admin: 03/15/17 08:43 Dose: 40 mg Miscellaneous Medication (Pharmacy To Dose) 1 each IVPB PRN PRN PRN Reason: SEPSIS Nitroglycerin (Nitrostat) 0.4 mg SL Q5MIN PRN PRN Reason: Chest Pain Ccu Electrolyte (Replacement Protocol) 0 each FS PRN PRN PRN Reason: FOR ELECTROLYTE REPLACEMENT Ondansetron HCl (Zofran) 4 mg IVP Q6H PRN PRN Reason: Nausea/Vomiting Pantoprazole Sodium (Protonix) 40 mg PO DAILY [facility] Last Admin: 03/15/17 08:43 Dose: 40 mg Senna (Senokot) 2 tab PO HSPRN PRN PRN Reason: Constipation Sodium Chloride (Flush - Normal Saline) 10 ml IVF Q12HR [facility] Last Admin: 03/15/17 08:44 Dose: 10 ml Sodium Chloride (Flush - Normal Saline) 10 ml IVF PRN PRN PRN Reason: Saline Flush Tramadol HCl (Ultram) 50 mg PO Q4H PRN PRN Reason: Moderate Pain (4-6) Last Admin: 03/14/17 03:22 Dose: 50 mg
[2017-03-15] MEDS ORDERED: Sodium Chloride 0.9% 1,000 ML IV SCH (17:15)
[2017-03-16] MEDS: Piperacillin/Tazobactam 4.5 GM in Sodium Chloride 0.9% 100 ML IVPB SCH ×4 (00:16→18:12)
[2017-03-16 05:18] LABS: Band 19 % (5-11); Hemoglobin 13.2 g/dL (12.0-16.0); Lymphocytes 12 % (21-51); MDiff Complete? YES; Mean Corpuscular HGB CONC 33.3 g/dL (32.0-36.0); Mean Corpuscular Hemoglobin 31.5 pg (27.0-31.0); Mean Corpuscular Volume 94.7 fl (81.0-99.0); Mean Platelet Volume 7.4 fL (7.4-10.4); Metamyelocyte 1 % (0-0); Monocytes 2 % (0-10); Neutrophil 66 % (42-75); Nucleated RBC 2 % (0); PLT Morphology Comment Appears Adequate; Platelet Count 389 thou/uL (130-400); RBC Distribution Width 14.8 % (11.5-14.5); RBC Morphology Normal; Red Blood Cell (RBC) Count 4.18 mill/uL (4.20-5.40); White Blood Cell (WBC) Count 33.2 thou/uL (4.8-10.8)
[2017-03-16 05:20] LABS: ALT (SGPT) 20 U/L (8-55); AST (SGOT) 28 U/L (5-34); Albumin 2.6 g/dL (3.4-4.8); Alkaline Phosphatase 182 U/L (40-150); Anion Gap 15 mmol/L (10-20); BUN (Urea Nitrogen) 18 mg/dL (9.8-20.1); Bilirubin, Total 2.5 mg/dL (0.2-1.2); Calc. Creatinine Clearance 53 mL/min (70-130); Calcium 9.7 mg/dL (7.8-10.44); Carbon Dioxide 21 mmol/L (23-31); Chloride 112 mmol/L (98-107); Estimated GFR-MDRD 72; Globulin 3.9 g/dL (2.4-3.5); Glucose 193 mg/dL (83-110); Protein, Total 6.5 g/dL (6.0-8.3); Sodium 146 mmol/L (136-145)
[2017-03-16 05:28] LABS: Potassium 2.3 mmol/L (3.5-5.1)
[2017-03-16] MEDS: Levothyroxine Sodium 112 MCG TAB PO SCH (05:58)
[2017-03-16] MEDS ORDERED: NS 0.9% w/ 40 MEQ KCL 1,000 ML IV SCH (06:00)
[2017-03-16 07:32] LABS: Magnesium 2.2 mg/dL (1.6-2.6); Phosphorus 2.1 mg/dL (2.3-4.7)
[2017-03-16] MEDS: guaiFENesin ER 600 MG TAB PO SCH (07:49)
[2017-03-16] MEDS: Megestrol Acetate 40 MG TAB PO SCH ×2 (07:50→16:24)
[2017-03-16 08:57] LABS: Vancomycin, Trough 13.3 ug/mL
[2017-03-16] MEDS ORDERED: Oseltamivir 75 MG CAP PO SCH (09:00)
[2017-03-16] MEDS: Potassium Chloride 20 MEQ TAB PO SCH ×2 (09:41→15:59)
[2017-03-16] MEDS ORDERED: Vancomycin HCl 1 GM in Premix Bag 1 BAG IVPB SCH (10:00)
--- NOTE | 2017-03-16 10:59 | PDOC.PN ---
- Subjective Encounter Start Date: 03/16/17 Encounter Start Time: 11:10 Subjective: not oriented this am, is awake -: has acral cyanosis -: spo2 around 85% on oxygen - Objective Resuscitation Status: Resuscitation Status DNR:Do Not Resuscitate MAR Reviewed: Yes Vital Signs & Weight: Vital Signs (12 hours) Temp Pulse Resp BP Pulse Ox 03/16/17 08:03 98.3 F 117 H 24 H 147/81 H 84 L 03/16/17 08:00 98.3 F 117 H 24 H 84 L 03/16/17 06:55 111 H 28 H 03/16/17 05:32 98.0 F 108 H 20 153/80 H 84 L 03/16/17 01:36 111 H 28 H 03/16/17 00:26 98.4 F 110 H 20 140/69 86 L Weight Weight 143 lb I&O: 03/15/17 03/16/17 03/17/17 06:59 06:59 06:59 Intake Total 2338 Output Total 650 2216 Balance -650 122 Result Diagrams: 03/16/17 04:10 03/16/17 04:10 Phys Exam - Physical Examination HEENT: PERRLA, sclera anicteric Neck: no JVD, supple rhonchi++ Cardiovascular: RRR, no significant murmur Gastrointestinal: soft, non-tender, positive bowel sounds Musculoskeletal: no edema, pulses present Neurological: non-focal, moves all 4 limbs Dx/Plan (1) Pneumonia Code(s): J18.9 - PNEUMONIA, UNSPECIFIED ORGANISM Status: Acute Qualifiers: Pneumonia type: aspiration pneumonia Laterality: bilateral (2) FTT (failure to thrive) in adult Status: Chronic (3) Hypertension Code(s): I10 - ESSENTIAL (PRIMARY) HYPERTENSION Status: Chronic Qualifiers: Hypertension type: essential hypertension Qualified Code(s): I10 - Essential (primary) hypertension (4) Hypothyroidism Code(s): E03.9 - HYPOTHYROIDISM, UNSPECIFIED Status: Chronic Qualifiers: Hypothyroidism type: unspecified Qualified Code(s): E03.9 - Hypothyroidism , unspecified (5) Kyphoscoliosis Code(s): M41.9 - SCOLIOSIS, UNSPECIFIED Status: Chronic (6) Moderate protein malnutrition Code(s): E44.0 - MODERATE PROTEIN-CALORIE MALNUTRITION Status: Chronic - Plan is on vanc and zosyn -: replace potassium -: wbc has come down to 33k with 19%bands today -: has acral cyanosis on oxygen, poor prognosis -: is driving to come here, will talk to him later * . Review of Systems - Medications/Allergies Allergies/Adverse Reactions: Allergies Allergy/AdvReac Type Severity Reaction Status Date / Time fluconazole [From Diflucan] Allergy Verified 08/19/13 12:13 Sulfa (Sulfonamide Allergy Verified 08/19/13 12:13 Antibiotics) Medications: Current Medications Al Hydroxide/Mg Hydroxide (Maalox) 15 ml PO Q4H PRN PRN Reason: Heartburn or Indigestion Albuterol/Ipratropium (Duoneb) 3 ml NEB Q6H PRN PRN Reason: SOB &/or Wheezing Albuterol/Ipratropium (Duoneb) 3 ml NEB [id number] [facility] Last Admin: 03/16/17 06:55 Dose: 3 ml Benzonatate (Tessalon) 100 mg PO Q4H PRN PRN Reason: Cough Last Admin: 03/13/17 01:52 Dose: 100 mg Bisacodyl (Dulcolax) 10 mg PO DAILYPRN PRN PRN Reason: Constipation Calcium Carbonate (Tums) 1,000 mg PO Q4H PRN PRN Reason: Heartburn or Indigestion Clonidine (Catapres) 0.1 mg PO Q4H PRN PRN Reason: Systolic BP > 180 Guaifenesin (Mucinex) 1,200 mg PO Q12HR [facility] Last Admin: 03/16/17 07:49 Dose: 1,200 mg Guaifenesin (Robitussin Sf) 200 mg PO Q4H PRN PRN Reason: Cough Last Admin: 03/13/17 03:41 Dose: 200 mg Hydralazine HCl (Apresoline) 10 mg SLOW IVP Q4H PRN PRN Reason: Systolic BP > 180 Piperacillin Sod/Tazobactam (Sod 4.5 gm/ Sodium Chloride) 100 mls @ 200 mls/hr IVPB Q6HR [facility] Last Admin: 03/16/17 05:58 Dose: 100 mls Magnesium Sulfate 1 gm/ Sodium (Chloride) 102 mls @ 102 mls/hr IV PRN PRN PRN Reason: MAG LEVEL 1.4 - 2.0 Last Admin: 03/13/17 02:57 Dose: 102 mls Magnesium Sulfate 2 gm/ Device 100 mls @ 100 mls/hr IVPB ASDIR PRN PRN Reason: MAGNESIUM < 1.4 Potassium Chloride/Sodium Chloride (Ns 0.9% W/ 40 Meq Kcl) 1,000 mls @ 75 mls/ hr IV .[id number] [facility] Stop: 03/18/17 06:01 Last Admin: 03/16/17 06:10 Dose: 1,000 mls Vancomycin HCl 1 gm/ Device 200 mls @ 200 mls/hr IVPB 1000,2200 [facility] Last Admin: 03/16/17 09:56 Dose: 200 mls Ketoconazole (Nizoral 2% Cream) 0 gm TOP PRN PRN PRN Reason: Itching Levothyroxine Sodium (Synthroid) 112 mcg PO 0600 [facility] Last Admin: 03/16/17 05:58 Dose: 112 mcg Loratadine (Claritin) 10 mg PO DAILYPRN PRN PRN Reason: Sinus Symptoms Magnesium Oxide (Magnesium Oxide) 400 mg PO BIDPRN PRN PRN Reason: FOR SERUM MAG 1.4 - 2.0 Last Admin: 03/13/17 20:12 Dose: 400 mg Magnesium Oxide (Magnesium Oxide) 800 mg PO PRN PRN PRN Reason: FOR SERUM MAG < 1.4 Megestrol Acetate (Megace) 40 mg PO BID-[facility] Last Admin: 03/16/17 07:50 Dose: 40 mg Miscellaneous Medication (Pharmacy To Dose) 1 each IVPB PRN PRN PRN Reason: SEPSIS Nitroglycerin (Nitrostat) 0.4 mg SL Q5MIN PRN PRN Reason: Chest Pain Ccu Electrolyte (Replacement Protocol) 0 each FS PRN PRN PRN Reason: FOR ELECTROLYTE REPLACEMENT Ondansetron HCl (Zofran) 4 mg IVP Q6H PRN PRN Reason: Nausea/Vomiting Oseltamivir Phosphate (Tamiflu) 75 mg PO BID [facility] Stop: 03/20/17 21:01 Last Admin: 03/16/17 09:42 Dose: 75 mg Pantoprazole Sodium (Protonix) 40 mg PO DAILY [facility] Last Admin: 03/16/17 07:50 Dose: 40 mg Potassium Chloride (K-Dur) 40 meq PO Q6H [facility] Stop: 03/17/17 02:31 Last Admin: 03/16/17 09:41 Dose: 40 meq Senna (Senokot) 2 tab PO HSPRN PRN PRN Reason: Constipation Sodium Chloride (Flush - Normal Saline) 10 ml IVF Q12HR [facility] Last Admin: 03/16/17 09:48 Dose: 10 ml Sodium Chloride (Flush - Normal Saline) 10 ml IVF PRN PRN PRN Reason: Saline Flush Tramadol HCl (Ultram) 50 mg PO Q4H PRN PRN Reason: Moderate Pain (4-6) Last Admin: 03/14/17 03:22 Dose: 50 mg
[2017-03-16 12:35] VITALS: BP 166/83
[2017-03-16 16:32] VITALS: TEMP 97.6
--- NOTE | 2017-03-16 19:06 | PRG ---
DATE OF SERVICE: 03/16/2017 SUBJECTIVE: Kaia Siddiqui is DNR. The patient's neck is markedly flexed, but to my surprise, she is having less difficulty breathing. OBJECTIVE: VITAL SIGNS: Sats are low at 85 on 5 liters, temperature 98, blood pressure 147/81, pulse 111. CHEST: Anterior rhonchi. CARDIAC: Normal S1, S2. No gallops. ABDOMEN: No masses. LABORATORY DATA: White count 33,000, H and H 13 and 39, 60 segs and 19 bands. Electrolytes are norm al. IMPRESSION: 1. Acute on chronic respiratory failure. 2. DO NOT RESUSCITATE. Baseline markedly abnormal x-ray with bilateral pulmonary infiltrates, proba angelique from aspiration. PLAN: As per the primary care physician, hospice was contacted, may go home with hospice. Probably we can switch over to oral antibiotics. Comfort care. We will follow in the hospital.
--- NOTE | 2017-03-19 01:00 | DIS ---
DATE OF ADMISSION: 03/12/2017 DATE OF DISCHARGE: 03/16/2017 DISCHARGE DISPOSITION: To inpatient Hospice. PRIMARY DISCHARGE DIAGNOSES: Aspiration pneumonia with sepsis, failure to thrive adult, severe kyphoscoliosis, and moderate protein malnutrition. SECONDARY DISCHARGE DIAGNOSES: Hypertension, hypothyroidism. PROCEDURES DONE DURING HOSPITALIZATION: Echo with 2D Doppler showed EF of 55% to 60%. Chest x-ray done on the day of admission showed patchy areas of consolidation in right upper and left lower lung zones, bilateral lower extremity venous Doppler done showed no DVT. Blood cultures x2, no growth. Urine culture, no growth. Respiratory virus panel PCR was positive for influenza A H3. Had a white count of 46,000 on the day of admission with peaking up to 57,400 on the with discharge numbers of 33, had nearly 33% bands on admission. Albumin level of 2.6. DISCHARGE MEDICATIONS: Norvasc 5 mg daily, DuoNebs q.6 hourly, levothyroxine 112 mcg p.o. daily, Megace 40 mg twice daily, Lopressor 25 mg daily, omeprazole 20 mg daily, and Ultram p.r.n. for pain. ALLERGIES: Allergic to SULFA and FLUCONAZOLE. DISCHARGE PLAN: The patient is being discharged to inpatient hospice. BRIEF COURSE DURING HOSPITALIZATION: The patient initially got admitted on the , after she was transferred from [place] [facility] for severe aspiration pneumonia. The patient was on BiPAP. She was DNR. She was septic with a white count of nearly 46,000 with 33% bands on admission. The patient had consultation with Dr. Pate for Pulmonology. She was initially admitted to [facility] and later downgraded to medical floor. She had severe kyphoscoliosis and had chronic aspiration. In view of advanced age with likely chance of recurrent aspiration with severe kyphoscoliosis, family discussion with was held. He did not want any heroic measures and wanted comfort care with hospice. In view of this, she is being discharged to inpatient hospice. Please note patient was slowly declining, although her white count was improving. She had developed acral cyanosis with acute encephalopathy likely due to respiratory failure with hypoxia. Her overall prognosis is poor. Please see a face to face documentation for the day of discharge [facility]. [facility]
--- NOTE | 2017-03-30 22:42 | EKG ---
Test Reason : Blood Pressure : / mmHG Vent. Rate : 118 BPM Atrial Rate : 118 BPM P-R Int : 132 ms QRS Dur : 072 ms QT Int : 320 ms P-R-T Axes : 044 032 069 degrees QTc Int : 448 ms Sinus tachycardia Otherwise normal ECG Confirmed by KAITLYNN GIL ([id number]), acquisitions editor JAVIER BROOKS ([id number] on 03/30/2017 10:40:58 PM Referred By: Confirmed By:KAITLYNN GIL
== END 2017-03-16 19:20 | disposition hospice, inpatient (51) | DRG 871 ==
LOC: ERS 20:12 → IMCU/EMU 23:26 → T4-B 03-14 18:03
PROVIDERS: ADMIT Internal Medicine; ATTEND Internal Medicine
DX: A41.9 Sepsis, unspecified organism (principal); R65.21 Severe sepsis with septic shock; J69.0 Pneumonitis due to inhalation of food and vomit; J96.21 Acute and chronic respiratory failure with hypoxia; E87.2 Acidosis; G93.40 Encephalopathy, unspecified; E44.0 Moderate protein-calorie malnutrition; E03.9 Hypothyroidism, unspecified; Z66 Do not resuscitate; M81.0 Age-related osteoporosis without current pathological fracture; H35.30 Unspecified macular degeneration; Z87.891 Personal history of nicotine dependence; M41.9 Scoliosis, unspecified; E87.6 Hypokalemia; R62.7 Adult failure to thrive; I10 Essential (primary) hypertension
CPT/HCPCS: 36415; 71045; 80048; 80053; 80202; 81003; 81015; 82553; 82805; 83605; 83690; 83735; 83880; 84100; 84484; 85025; 85060; 85379; 87086; 87633; 87798; 93005; 93306; 93970; 94640; 96365; 96367; 96375; 99292; G8996-GN-CK; G8997-GN-CK; J1940; J2060; J2543; J3370; J3475; J3480; J7050; J7611; J7620; S0179